=== PATIENT | female | born 1965 | race Caucasian/White ===

== ENCOUNTER → 2017-10-28 | Outpatient (CLI) | payer OTHER | LOC: RAH 11:09 | DX: Z12.31 Encounter for screening mammogram for malignant neoplasm of breast (principal) | CPT/HCPCS: 77067 ==

== ENCOUNTER → 2018-12-27 | Outpatient (CLI) | payer OTHER | END | disposition home or self-care (01) | LOC: RAH 08:34 | PROVIDERS: ATTEND Family Medicine | DX: Z12.31 Encounter for screening mammogram for malignant neoplasm of breast (principal) | CPT/HCPCS: 77067 ==

== ENCOUNTER → 2019-01-04 | Outpatient (CLI) | payer OTHER | END | disposition home or self-care (01) | LOC: RAH 10:00 | PROVIDERS: ATTEND Family Medicine | DX: I11.9 Hypertensive heart disease without heart failure (principal) | CPT/HCPCS: 93306 ==

== ENCOUNTER 2021-10-08 05:45 | Observation (INO) | payer SELFPAY ==
[2021-10-07 15:28] LABS: HEMATOCRIT 37.2 % (36-48); MEAN CORPUSCULAR HEMOGLOBIN 29.1 pg (27.0-33.0); MEAN CORPUSCULAR HGB CONC 33.6 g/dL (32.0-36.0); MEAN CORPUSCULAR VOLUME 86.5 fL (79-99); RED BLOOD CELL COUNT(AUTO) 4.3 MIL/uL (4.00-5.50); RED CELL DISTRIBUTION WIDTH 12.3 % (11.0-15.5); WHITE BLOOD COUNT (AUTO) 9.8 K/uL (4.8-10.8)
[2021-10-07 15:38] LABS: CREATININE 0.7 mg/dL (0.5-1.5); POTASSIUM 3.6 mmol/L (3.5-5.1)
[2021-10-07 15:41] LABS: INR 0.93 (0.85-1.15)
[2021-10-07 15:43] LABS: PARTIAL THROMBOPLASTIN TIME 25.1 SEC (26.3-35.5)
[2021-10-08] VITALS (17 sets, daily range): BP systolic 14–151; BP diastolic 59–91
[~2021-10-08] VITALS: Ht 162.6 cm; Wt 87.8 kg
[~2021-10-08 05:45] MED LIST: IBUP-14 PO
[2021-10-08] MEDS ORDERED: TRANEXAMIC ACID 1000MG/10ML ONE (07:17)
[2021-10-08] MEDS ORDERED: CEFAZOLIN SODIUM 1 GM VIAL IVP ONE (08:00)
[2021-10-08] MEDS: LACTATED RINGERS 1000ML 1,000 ML IV SCH ×3 (08:00→14:44)
[2021-10-08] MEDS ORDERED: MORPHINE 4 MG SYG IVP PRN (08:30)
[2021-10-08] MEDS ORDERED: ONDANSETRON 4MG INJ IVP PRN (08:30)
[2021-10-08] MEDS: 0.9%NACL 1000ML 1,000 ML IV SCH ×2 (08:30→17:54)
[2021-10-08] MEDS: ACETAMINOPHEN 500 MG TABLET PO SCH ×2 (08:30→17:54)
[2021-10-08] MEDS ORDERED: ROCURONIUM 10MG/1ML SYR 10 MG/ML ML ONE ×2 (08:51→11:40)
[2021-10-08] MEDS ORDERED: MIDAZOLAM HCL 1 MG/ML 2ML VIAL ONE (08:51)
[2021-10-08] MEDS ORDERED: PROPOFOL 10 MG/ML 20ML VIAL IV ONE (08:51)
[2021-10-08] MEDS ORDERED: SUCCINYLCHOLINE CHLORIDE 20 MG/ML 10 ML VIAL ONE (08:51)
[2021-10-08] MEDS ORDERED: FENTANYL CITRATE PF 50 MCG/1 ML 2ML VIAL ONE ×2 (08:51→10:05)
[2021-10-08] MEDS ORDERED: CEFAZOLIN SODIUM 2 GM VIAL IV ONE (08:52)
[2021-10-08] MEDS: CELECOXIB 200 MG CAP PO SCH ×2 (09:00→20:12)
[2021-10-08] MEDS: ASPIRIN 81 MG EC TAB PO SCH ×2 (09:00→20:12)
[2021-10-08] MEDS: POLYETHYLENE GLYCOL 3350 17 GM POWD.PACK PO SCH (09:00)
[2021-10-08] MEDS: FAMOTIDINE 20MG TAB PO SCH ×2 (09:00→20:12)
[2021-10-08] MEDS ORDERED: GLYCOPYRROLATE 1 MG/5 ML SYRINGE ONE ×2 (10:35→13:09)
[2021-10-08] MEDS ORDERED: EPHEDRINE SULFATE 50 MG/ML AMPULE ONE (10:41)
[2021-10-08] MEDS ORDERED: TRANEXAMIC ACID 1000MG/10ML TP ONE (11:00)
[2021-10-08] MEDS: TRAMADOL HCL 50 MG TABLET PO SCH ×2 (12:00→17:54)
[2021-10-08] MEDS ORDERED: NEOSTIGMINE 5MG/5ML SYR IV ONE (13:09)
[2021-10-08] MEDS: CEFAZOLIN SODIUM 1 GM VIAL IVP SCH ×2 (13:30→20:12)
[2021-10-08] MEDS: HYDROCODONE/ACETAMINOPHEN 5/325 MG TAB PO PRN ×2 (15:23→20:13)
[2021-10-08] MEDS: FERROUS GLUCONATE TABLET PO SCH (17:57)
[2021-10-09] MEDS: ACETAMINOPHEN 500 MG TABLET PO SCH ×4 (00:30→23:31)
[2021-10-09] MEDS: HYDROCODONE/ACETAMINOPHEN 10/325 MG TAB PO PRN ×2 (01:01→08:16)
[2021-10-09 03:48] VITALS: BP 126/74
[2021-10-09] MEDS: 0.9%NACL 1000ML 1,000 ML IV SCH (04:30)
[2021-10-09] MEDS: TRAMADOL HCL 50 MG TABLET PO SCH ×6 (04:36→23:30)
[2021-10-09 04:59] LABS: HEMATOCRIT 27.7 % (36-48); MEAN CORPUSCULAR HEMOGLOBIN 28.9 pg (27.0-33.0); MEAN CORPUSCULAR HGB CONC 34.7 g/dL (32.0-36.0); MEAN CORPUSCULAR VOLUME 83.4 fL (79-99); RED BLOOD CELL COUNT(AUTO) 3.32 MIL/uL (4.00-5.50); RED CELL DISTRIBUTION WIDTH 12.3 % (11.0-15.5); WHITE BLOOD COUNT (AUTO) 12.2 K/uL (4.8-10.8)
[2021-10-09 05:29] LABS: CREATININE 0.6 mg/dL (0.5-1.5); POTASSIUM 3.8 mmol/L (3.5-5.1)
[2021-10-09 08:00] VITALS: BP 150/56
[2021-10-09] MEDS: FAMOTIDINE 20MG TAB PO SCH ×2 (09:36→21:05)
[2021-10-09] MEDS: CELECOXIB 200 MG CAP PO SCH ×2 (09:36→21:05)
[2021-10-09] MEDS: ASPIRIN 81 MG EC TAB PO SCH ×2 (09:36→21:05)
[2021-10-09] MEDS: POLYETHYLENE GLYCOL 3350 17 GM POWD.PACK PO SCH (09:36)
[2021-10-09] MEDS: FERROUS GLUCONATE TABLET PO SCH ×2 (10:33→16:53)
[2021-10-09 12:00] VITALS: BP 145/47
[2021-10-09] MEDS: HYDROCODONE/ACETAMINOPHEN 5/325 MG TAB PO PRN (13:02)
[2021-10-09 16:00] VITALS: BP 114/53
[2021-10-09 20:00] VITALS: BP 116/50
[2021-10-09 23:34] VITALS: BP 100/50
[2021-10-10] MEDS: TRAMADOL HCL 50 MG TABLET PO SCH ×3 (02:35→08:25)
[2021-10-10 05:04] VITALS: BP 108/49
[2021-10-10] MEDS: ASPIRIN 81 MG EC TAB PO SCH (08:47)
[2021-10-10] MEDS: FAMOTIDINE 20MG TAB PO SCH (08:47)
[2021-10-10] MEDS: POLYETHYLENE GLYCOL 3350 17 GM POWD.PACK PO SCH (08:48)
[2021-10-10] MEDS: ACETAMINOPHEN 500 MG TABLET PO SCH (08:48)
[2021-10-10] MEDS: CELECOXIB 200 MG CAP PO SCH (08:48)
[2021-10-10] MEDS: FERROUS GLUCONATE TABLET PO SCH (08:51)
[2021-10-10 12:53] VITALS: BP 107/57
[2021-10-11] MEDS ORDERED: BISACODYL 10 MG SUPP.RECT RC PRN (08:30)
== END 2021-10-10 13:20 | disposition home or self-care (01) ==
LOC: DAH 05:45 → DAHIP 05:46 → DAH 05:46 → WSH 14:46 → 4DH 14:49
PROVIDERS: ADMIT Orthopaedic Surgery; ATTEND Orthopaedic Surgery
DX: M17.12 Unilateral primary osteoarthritis, left knee (principal); Z20.822 Contact with and (suspected) exposure to COVID-19; M19.92 Post-traumatic osteoarthritis, unspecified site; M24.462 Recurrent dislocation, left knee; Z98.1 Arthrodesis status; Z79.899 Other long term (current) drug therapy; Z98.890 Other specified postprocedural states
CPT/HCPCS: 27447; S2900; 36415; 64447; 73562; 76942; 80048; 85027; 85610; 85730; 87635; 96374; 97039; C9803; G0378; J0330; J0690; J2250; J2270; J2704; J2710; J3010; J3490; J7030; J7120

== ENCOUNTER → 2022-12-22 | Outpatient (CLI) | payer BC | END | disposition home or self-care (01) | LOC: RAH 11:06 | PROVIDERS: ATTEND Family Medicine | DX: Z12.31 Encounter for screening mammogram for malignant neoplasm of breast (principal) | CPT/HCPCS: 77067 ==

== ENCOUNTER → 2024-03-31 | Outpatient (CLI) | payer BC ==
--- NOTE | 2024-04-01 08:52 | HMCIMG ---
SCREENING MAMMOGRAM REASON: Annual Exam COMPARISON: 12/22/2022 TECHNIQUE: CC and MLO views of the bilateral breasts were performed.CAD was performed as well. FINDINGS: Parenchymal density: The breasts are heterogeneously dense, which may obscure small masses. There are no focal mass lesions. There are no pathologic appearing calcifications. There is no evidence of architectural distortion or skin thickening. IMPRESSION: Normal screening mammogram The patient was entered into a reminder system with a target due date for their next mammogram. BI-RADS CATEGORY 1: NEGATIVE Recommend monthly self breast exam as well as annual clinical examination. A negative x-ray should not delay biopsy if a dominant or clinically suspicious mass is present, since 8-10% of cancers are not identified by mammography. Dense breasts particularly, may obscure an underlying neoplasm. Some of these may be detected clinically and therefore, clinical examination is an essential part of breast evaluation.
== END | disposition home or self-care (01) ==
LOC: RAH 14:12
PROVIDERS: ATTEND Family Medicine
DX: Z12.31 Encounter for screening mammogram for malignant neoplasm of breast (principal); R92.30 Dense breasts, unspecified
CPT/HCPCS: 77067